=== PATIENT | male | born 1970 | race Caucasian/White ===

== ENCOUNTER 2017-10-28 08:49 | Inpatient (IN) | payer OTHER ==
[~2017-10-28] VITALS: Ht 188 cm; Wt 95.5 kg
[2017-10-28 10:26] LABS: HEMATOCRIT 30.5 % (38.0-50.0); HEMOGLOBIN 10.5 G/DL (12.5-16.6); MCH 27.6 PG (29.0-34.0); MCHC 34.4 G/DL (30.0-36.0); MCV 80.1 FL (86-99); PLATELET COUNT 200 K/uL (156-360); RBC DIS.WIDTH-CV 15.5 % (11.8-14.6); RBC DIS.WIDTH-SD 44.6 % (39-53); RED BLOOD COUNT 3.81 M/uL (4.00-5.50)
[2017-10-28 11:40] LABS: GLUCOSE 99 mg/dL (70-99)
[2017-10-28 11:44] LABS: CREATININE 11.5 mg/dL (0.6-1.3); GFR ESTIMATE (CALCULATED) 5 mL/min/ (58.99-99999)
[2017-10-28 12:04] LABS: CHLORIDE 107 mEq/L (99-109)
[2017-10-28 12:15] LABS: SODIUM 135 mEq/L (136-147); UREA NITROGEN (BUN) 142 mg/dL (9-23)
[2017-10-28 13:46] LABS: APPEARANCE CLEAR ((CLEAR)); BILIRUBIN NEGATIVE; BLOOD SMALL; COLOR YELLOW ((YELLOW)); GLUCOSE (STRIP) NEGATIVE; KETONES NEGATIVE; LEUKOCYTES NEGATIVE; NITRITE NEGATIVE; PROTEIN (STRIP) 100; SPECIFIC GRAVITY 1.012 (1.000-1.030); UROBILINOGEN 0.2 MG/DL (0.2-1.0)
[2017-10-28 13:54] LABS: BACTERIA NONE SEEN /HPF; CALCIUM OXALATE CRYSTALS 1+ /HPF; EPITHELIAL CELLS RARE /HPF; MUCUS TRACE /LPF; RED BLOOD CELLS 0-5 /HPF (0-5); UCUL ADDED? NO; WHITE BLOOD CELLS 0-5 /HPF (0-5)
[2017-10-28] MEDS ORDERED: ASPIR 8181 M1 PO (15:09)
[2017-10-28] MEDS ORDERED: NABI650T PO (15:09)
[2017-10-28] MEDS ORDERED: PROGRAF0.5 MG PO (15:10)
[2017-10-28] MEDS ORDERED: PROGRAF1 MG PO (15:10)
[2017-10-28] MEDS ORDERED: TRADJENTA5 MG PO (15:12)
[2017-10-28] MEDS ORDERED: MYCOPHENOLATE500 MG PO (15:12)
[2017-10-28] MEDS ORDERED: PREDNISONE5 MG PO (15:12)
[2017-10-28] MEDS ORDERED: LOPRESSOR100 M1 PO (15:12)
[2017-10-28] MEDS ORDERED: ROCALTROL0.25 MCG PO (15:13)
[2017-10-28] MEDS ORDERED: BASAGLAR K100 UNIT/1 SC (15:13)
[2017-10-28] MEDS ORDERED: APRESOLINE50 MG PO (15:13)
[2017-10-28] MEDS ORDERED: HUMALOG100 UNIT/2 SC ×2 (15:14→15:15)
[2017-10-28 15:44] LABS: MAGNESIUM 1.1 mg/dl (1.3-2.7)
[2017-10-28 16:23] LABS: CHLORIDE 105 MEQ/L (99-109); CREATININE 9.8 MG/DL (0.6-1.3); GFR ESTIMATE (CALCULATED) 6 mL/min/ (58.99-99999); GLUCOSE 91 mg/dL (70-99); SODIUM 137 MEQ/L (136-147)
[2017-10-28 16:28] LABS: UREA NITROGEN (BUN) 137 mg/dL (9-23)
[2017-10-28 17:53] LABS: ALBUMIN 3.9 G/DL (3.2-4.8)
[2017-10-28 18:21] LABS: INTER. NORMALIZED RATIO 1.4
[2017-10-28 18:23] LABS: PTT 35.1 SEC (25-37)
[2017-10-28 19:03] VITALS: BP 97/55
[2017-10-28 19:11] LABS: ALKALINE PHOSPHATASE 66 IU/L (3-129); ALT (GPT) 5 IU/L (3-49); AST (GOT) 9 IU/L (2-34); CHLORIDE 104 MEQ/L (99-109); GFR ESTIMATE (CALCULATED) 5 mL/min/ (58.99-99999); GLUCOSE 110 mg/dL (70-99); MAGNESIUM 1.1 mg/dl (1.3-2.7); PHOSPHORUS 10.1 mg/dL (2.5-4.9); SODIUM 136 MEQ/L (136-147); TOTAL BILIRUBIN 0.3 MG/DL (0.0-1.0); TOTAL PROTEIN 6.3 G/DL (6.4-8.3)
[2017-10-28 19:14] LABS: POTASSIUM 2.4 MEQ/L (3.7-5.4); UREA NITROGEN (BUN) 135 mg/dL (9-23)
[2017-10-28 19:15] LABS: CARBON DIOXIDE (BICARBONATE) < 10.0 MEQ/L (20-31)
[2017-10-28 19:37] VITALS: BP 96/64
[2017-10-28 20:00] VITALS: BP 99/58
[2017-10-28 20:07] LABS: HIGH-SENS C-REACTIVE PROTEIN 0.14 MG/DL (0.02-0.20)
[2017-10-28 21:00] VITALS: BP 100/58
[2017-10-28 21:28] LABS: CHLORIDE 105 MEQ/L (99-109); CREATININE 10.7 MG/DL (0.6-1.3); GFR ESTIMATE (CALCULATED) 6 mL/min/ (58.99-99999); GLUCOSE 121 mg/dL (70-99); SODIUM 139 MEQ/L (136-147)
[2017-10-28 21:31] LABS: MAGNESIUM 1.6 mg/dl (1.3-2.7); POTASSIUM 2.3 MEQ/L (3.7-5.4); UREA NITROGEN (BUN) 130 mg/dL (9-23)
[2017-10-28 22:00] VITALS: BP 100/58
[2017-10-28 23:00] VITALS: BP 100/60
[2017-10-29] VITALS (23 sets, daily range): BP systolic 97–128; BP diastolic 50–78
[2017-10-29 01:43] LABS: APPEARANCE SL.HAZY ((CLEAR)); BILIRUBIN NEGATIVE; BLOOD SMALL; COLOR YELLOW ((YELLOW)); GLUCOSE (STRIP) NEGATIVE; KETONES NEGATIVE; LEUKOCYTES NEGATIVE; NITRITE NEGATIVE; PROTEIN (STRIP) 30; SPECIFIC GRAVITY 1.009 (1.000-1.030); UROBILINOGEN 0.2 MG/DL (0.2-1.0)
[2017-10-29 01:49] LABS: BACTERIA RARE /HPF; EPITHELIAL CELLS NONE SEEN /HPF; MUCUS NONE SEEN /LPF; RED BLOOD CELLS NONE SEEN /HPF (0-5); UCUL ADDED? NO; WHITE BLOOD CELLS 0-5 /HPF (0-5)
[2017-10-29 02:21] LABS: HEMATOCRIT 25.1 % (38.0-50.0); HEMOGLOBIN 8.7 G/DL (12.5-16.6); MCH 27.5 PG (29.0-34.0); MCHC 34.7 G/DL (30.0-36.0); MCV 79.4 FL (86-99); PLATELET COUNT 195 K/uL (156-360); RBC DIS.WIDTH-CV 15.5 % (11.8-14.6); RBC DIS.WIDTH-SD 45.1 % (39-53); RED BLOOD COUNT 3.16 M/uL (4.00-5.50); WHITE BLOOD COUNT 6.4 K/uL (4.1-10.2)
[2017-10-29 02:54] LABS: ALBUMIN 3.3 G/DL (3.2-4.8); CHLORIDE 108 MEQ/L (99-109); CREATININE 10.3 MG/DL (0.6-1.3); GFR ESTIMATE (CALCULATED) 6 mL/min/ (58.99-99999); GLUCOSE 143 mg/dL (70-99); PHOSPHORUS 6.7 mg/dL (2.5-4.9); POTASSIUM 2.7 MEQ/L (3.7-5.4); SODIUM 139 MEQ/L (136-147)
[2017-10-29 03:16] LABS: MAGNESIUM 2.5 mg/dl (1.3-2.7)
[2017-10-29 03:21] LABS: UREA NITROGEN (BUN) 125 mg/dL (9-23)
[2017-10-29 03:22] LABS: CARBON DIOXIDE (BICARBONATE) < 10.0 MEQ/L (20-31)
[2017-10-29 04:52] LABS: CREATINE KINASE 188 IU/L (1-294)
[2017-10-29 06:31] LABS: BASE EXCESS -19.8 mEq/L (-3 to +3); BICARBONATE 7.1 mEq/L (22-26); CARBOXY HGB 1.1 % (0-5); METHEMOGLOBIN 1.3 % (0-1.5); PCO2 20 mm Hg (35-45); PO2 127 mm Hg (80-100)
[2017-10-29 06:32] LABS: COMMENTS - BLOOD GASES A+C+; SITE LR
[2017-10-29 06:33] LABS: FI02 21 %; pH 7.16 (7.35-7.45)
[2017-10-29 07:20] LABS: ALBUMIN 3.1 G/DL (3.2-4.8); ALKALINE PHOSPHATASE 55 IU/L (3-129); ALT (GPT) 3 IU/L (3-49); AST (GOT) 7 IU/L (2-34); BASOPHIL (%) 0.2 % (0-1); CHLORIDE 114 MEQ/L (99-109); CREATININE 9.1 MG/DL (0.6-1.3); EOSINOPHIL (%) 0.2 % (0-5); GFR ESTIMATE (CALCULATED) 7 mL/min/ (58.99-99999); GLUCOSE 187 mg/dL (70-99); HEMATOCRIT 26.5 % (38.0-50.0); HEMOGLOBIN 8.8 G/DL (12.5-16.6); IMMATURE GRANULOCYTE (%) 0.3 % (0.0-0.7); LYMPHOCYTE (%) 4.1 % (15-42); LYMPHOCYTE COUNT 0.3 K/uL (1.0-2.8); MAGNESIUM 2.3 mg/dl (1.3-2.7); MCH 26.9 PG (29.0-34.0); MCHC 33.2 G/DL (30.0-36.0); MONOCYTE (%) 2.5 % (3-12); MONOCYTE COUNT 0.2 K/uL (0-0.8); NEUTROPHIL (%) 92.7 % (45-76); NEUTROPHIL COUNT 5.9 K/uL (1.8-6.4); PHOSPHORUS 5.2 mg/dL (2.5-4.9); PLATELET COUNT 198 K/uL (156-360); POTASSIUM 2.9 MEQ/L (3.7-5.4); RBC DIS.WIDTH-CV 15.9 % (11.8-14.6); RBC DIS.WIDTH-SD 47.5 % (39-53); RED BLOOD COUNT 3.27 M/uL (4.00-5.50); SODIUM 138 MEQ/L (136-147); TOTAL BILIRUBIN 0.3 MG/DL (0.0-1.0); WHITE BLOOD COUNT 6.3 K/uL (4.1-10.2)
[2017-10-29 07:23] LABS: UREA NITROGEN (BUN) 121 mg/dL (9-23)
[2017-10-29 07:24] LABS: CARBON DIOXIDE (BICARBONATE) < 10.0 MEQ/L (20-31); TOTAL PROTEIN 4.8 G/DL (6.4-8.3)
[2017-10-29 15:17] LABS: ALBUMIN 3.4 G/DL (3.2-4.8); CARBON DIOXIDE (BICARBONATE) < 10.0 MEQ/L (20-31); CHLORIDE 109 MEQ/L (99-109); GFR ESTIMATE (CALCULATED) 7 mL/min/ (58.99-99999); GLUCOSE 255 mg/dL (70-99); PHOSPHORUS 3.9 mg/dL (2.5-4.9); POTASSIUM 2.7 MEQ/L (3.7-5.4); SODIUM 134 MEQ/L (136-147); UREA NITROGEN (BUN) 113 mg/dL (9-23)
[2017-10-29 18:10] LABS: C DIFF TOXIN NEGATIVE (NEGATIVE)
[2017-10-29 21:13] LABS: CHLORIDE 113 MEQ/L (99-109); CREATININE 8.3 MG/DL (0.6-1.3); GFR ESTIMATE (CALCULATED) 7 mL/min/ (58.99-99999); GLUCOSE 283 mg/dL (70-99); SODIUM 136 MEQ/L (136-147)
[2017-10-29 21:15] LABS: UREA NITROGEN (BUN) 110 mg/dL (9-23)
[2017-10-29 21:16] LABS: CARBON DIOXIDE (BICARBONATE) < 10.0 MEQ/L (20-31); POTASSIUM 3.3 MEQ/L (3.7-5.4)
[2017-10-30] VITALS (21 sets, daily range): BP systolic 102–130; BP diastolic 56–87
[2017-10-30 06:14] LABS: ALBUMIN 3.1 G/DL (3.2-4.8); CHLORIDE 113 MEQ/L (99-109); CREATININE 8.2 MG/DL (0.6-1.3); GFR ESTIMATE (CALCULATED) 8 mL/min/ (58.99-99999); GLUCOSE 231 mg/dL (70-99); POTASSIUM 3.4 MEQ/L (3.7-5.4); SODIUM 137 MEQ/L (136-147)
[2017-10-30 06:16] LABS: MAGNESIUM 1.8 mg/dl (1.3-2.7); PHOSPHORUS 2.1 mg/dL (2.5-4.9); UREA NITROGEN (BUN) 108 mg/dL (9-23)
[2017-10-30 10:41] LABS: HEPATITIS B SURFACE ANTIBODY Nonreactive; HEPATITIS B SURFACE ANTIGEN Nonreactive
[2017-10-31] VITALS: BP 132/81
[2017-10-31 01:00] VITALS: BP 121/70
[2017-10-31 02:00] VITALS: BP 116/67
== END 2017-10-31 03:08 | disposition short-term general hospital (02) | DRG 698 ==
LOC: EME 08:49 → 4WEST 15:17 → EDOF 15:17 → ENRESERV 15:20 → EDOF 17:50 → ENRESERV 18:01 → 4WEST 18:19 → ENRESERV 18:21 → 4WEST 18:59
PROVIDERS: Emergency Medicine; Internal Medicine; Internal Medicine Nephrology; Obstetrics & Gynecology
PROC: 05HM33Z Insertion of Infusion Device into Right Internal Jugular Vein, Percutaneous Approach (ICD-10-PCS; principal; 2017-10-28)
PROC: 5A1D70Z Performance of Urinary Filtration, Intermittent, Less than 6 Hours Per Day (ICD-10-PCS; 2017-10-30)
DX: T86.11 Kidney transplant rejection (principal); N17.9 Acute kidney failure, unspecified; N13.30 Unspecified hydronephrosis; E11.22 Type 2 diabetes mellitus with diabetic chronic kidney disease; E11.21 Type 2 diabetes mellitus with diabetic nephropathy; N25.81 Secondary hyperparathyroidism of renal origin; I10 Essential (primary) hypertension; E87.6 Hypokalemia; R04.0 Epistaxis; E86.0 Dehydration; N26.9 Renal sclerosis, unspecified; R19.7 Diarrhea, unspecified; A09 Infectious gastroenteritis and colitis, unspecified; E78.5 Hyperlipidemia, unspecified; E83.42 Hypomagnesemia; M79.1 Myalgia; N18.3 Chronic kidney disease, stage 3 (moderate); Y83.0 Surgical operation with transplant of whole organ as the cause of abnormal reaction of the patient, or of later complication, without mention of misadventure at the time of the procedure; D64.9 Anemia, unspecified; E63.9 Nutritional deficiency, unspecified; E83.51 Hypocalcemia; E11.10 Type 2 diabetes mellitus with ketoacidosis without coma; E55.9 Vitamin D deficiency, unspecified; Z83.3 Family history of diabetes mellitus; Z82.49 Family history of ischemic heart disease and other diseases of the circulatory system; Z80.9 Family history of malignant neoplasm, unspecified; Z79.4 Long term (current) use of insulin; Z94.0 Kidney transplant status; Z87.891 Personal history of nicotine dependence; Z79.82 Long term (current) use of aspirin; Z79.899 Other long term (current) drug therapy
CPT/HCPCS: 36600; 71045; 71046; 76770; 76776; 80048; 80048 91; 80053; 80069; 80197 90; 81003; 82010; 82040; 82330; 82550; 82803; 82948; 83605; 83735; 83930; 84100; 84145 90; 85025; 85027; 85610; 85730; 86141; 86706; 87040; 87177; 87206; 87329; 87340; 87425-90; 87493; 87497 90; 87502; 87641; 93005; 99281; 99285; C1788; J0610; J0692; J1644; J1720; J1815; J2405; J3370; J3475; J3480; J7030; J7050; J7070; J7120; J7507; J7517; S0030